=== PATIENT | male | born 2005 | race African-American/Black ===

== ENCOUNTER 2023-06-12 10:00 | Emergency (ER) | payer OTHER ==
[~2023-06-12] VITALS: Ht 170.2 cm; Wt 59.6 kg
[2023-06-12] MEDS ORDERED: ACETAMINOPHEN 325 MG TAB PO ONE (10:30)
[2023-06-12] MEDS ORDERED: ACETAMINOPHEN 325 MG TAB ONE (10:35)
[2023-06-12] MEDS ORDERED: HYDROXYZINE HCL10 MG PO (10:38)
[2023-06-12] MEDS ORDERED: AMOXICILLIN500 MG PO (11:10)
[2023-06-12 11:12] VITALS: O2SAT 99
== END 2023-06-12 11:18 | disposition home or self-care (01) ==
LOC: EDBD 10:00 → FSED 10:08
DX: R05.9 Cough, unspecified (principal); J06.9 Acute upper respiratory infection, unspecified; H66.92 Otitis media, unspecified, left ear; B34.9 Viral infection, unspecified; Z20.822 Contact with and (suspected) exposure to COVID-19
CPT/HCPCS: 0223U; 83518; 87400; 87420; 99283